=== PATIENT | male | born 1990 | race Caucasian/White ===

== ENCOUNTER 2020-02-18 23:48 | Emergency (ER) | payer OTHER ==
[2020-02-19] MEDS ORDERED: MORPHINE SULFATE 10 MG/ML INJ IV ONE ×3 (00:31→05:12)
[2020-02-19] MEDS ORDERED: ONDANSETRON HCL INJ/PF 4 MG/2 ML SDV IV ONE ×2 (00:31→05:12)
--- NOTE | 2020-02-19 00:40 | ER Document Report ---
ED Animal Bite - General Chief Complaint: Snake Bite Stated Complaint: SNAKE BITE TO LEFT THIGH Time Seen by Provider: 02/19/20 00:22 Notes: Patient is a 29-year-old male that comes to the emergency department for chief complaint of snakebite. He states he was carrying a pile of of sticks in his backyard when a snake suddenly bit him on the thigh, he states he thinks the snake was in the pile he was carrying. He states he did see the snake and it was light brown with whitish stripes on it. He states it was about 2 and half feet long. He started getting pain and a little bit of bruising at the area over the left thigh where he was bitten, he denies any other symptoms including nausea, sweating, shortness of breath, or pain anywhere else. He is vaccinated within 5 years for his tetanus, he denies any daily medications or diagnosed medical history. He did admit to drinking several beers tonight, denies recreational drugs. - Related Data Allergies/Adverse Reactions: No Known Allergies Allergy (Verified 02/19/20 00:45) Home Medications: Doxycycline Past Medical History - General Information source: Patient - Social History Smoking Status: Current Every Day Smoker Chew tobacco use (# tins/day): No Frequency of alcohol use: Social Drug Abuse: None Lives with: Family Family History: Reviewed & Not Pertinent Patient has suicidal ideation: No Patient has homicidal ideation: No - Medical History Medical History: Negative Past Surgical History: Reports: Hx Orthopedic Surgery - Immunizations Immunizations up to date: Yes Hx Diphtheria, Pertussis, Tetanus Vaccination: Yes Review of Systems - Review of Systems Constitutional: No symptoms reported EENT: No symptoms reported Cardiovascular: No symptoms reported Respiratory: No symptoms reported Gastrointestinal: No symptoms reported Genitourinary: No symptoms reported Male Genitourinary: No symptoms reported Musculoskeletal: See HPI Skin: See HPI Hematologic/Lymphatic: No symptoms reported Neurological/Psychological: No symptoms reported Physical Exam - Vital signs Vitals: Temp Pulse Resp BP Pulse Ox 97.5 F 72 18 148/97 H 98 02/18/20 23:52 02/18/20 23:52 02/18/20 23:52 02/18/20 23:52 02/18/20 23:52 - Notes Notes: GENERAL: Alert, interacts well. No acute distress. Appropriate, does not appear to be intoxicated. HEAD: Normocephalic, atraumatic. EYES: Pupils equal, round, and reactive to light. Extraocular movements intact. ENT: Oral mucosa moist, tongue midline. Oropharynx unremarkable. Airway patent. Nares patent, sinuses non-tender NECK: Full range of motion. Supple. Trachea midline. No lymphadenopathy. LUNGS: Clear to auscultation bilaterally, no wheezes, rales, or rhonchi. No respiratory distress. Non-tender chest wall. HEART: Regular rate and rhythm. No murmur ABDOMEN: Soft, non-tender. Non-distended. EXTREMITIES: Left anterior distal lateral thigh with a 2 cm area consistent with small puncture wounds and surrounding ecchymosis. There is no noted erythema at this time, there is some slight soft tissue swelling surrounding this which is firm but not hard and not significantly tender. There is no extension up tow ards the thigh or down towards the knee. Normal range of motion at the hip, knee, normal distal neurovascular exam. BACK: no cervical, thoracic, lumbar midline tenderness. No saddle anesthesia, normal distal neurovascular exam. Moves all extremities in full range of motion. NEUROLOGICAL: Alert and oriented x3. Normal speech. Cranial nerves II through XII grossly intact. Strength 5/5 in all extremities. PSYCH: Normal affect, normal mood. SKIN: Warm, dry, normal turgor. No rashes or lesions noted. Course - Re-evaluation Re-evalutation: 02/19/20 00:35. Called and spoke with poison control. Recommendation is to observe patient for 8 hours. Measure thigh hourly, measure and oh any redness hourly, if there is significant swelling at 6 hours obtain CBC, PT/INR, fibrinogen at that time, if significant swelling and considering crofab call poison control back. 02/19/20 01:40 There is slightly increased bruising and swelling with slightly additional warmth but there is no significant or severe change from 1 hour ago. Continuing to monitor. Initial thigh measurement was 58, not it is 61 cm. 02/19/20 03:03 Evaluation patient is barely changed from prior, but 1 cm change on measurement, scouring machine tender to the area, no significant streaking away from the area, continue to monitor. Patient is much more comfortable after second pain medication dose. 02/19/20 04:19 Thigh measurement has stopped increasing in size (at 64 cm), there is no worsening change at this point, hopefully after this point patient has reached the maximal swelling and will simply improve from this time. 02/19/20 05:13 Swelling has decreased at this point (60 cm). Last measurement was 2 cm smaller over the left thigh. If patient continues to improve like this patient will be discharged at 8 AM per monitoring period recommendations. 02/19/20 05:21 Poison control called back, asked for all the details, these were provided. They state at this point the case will be considered closed, patient will be monitored till 8 AM, after this he can be discharged, they can be called back if any concerning symptoms or findings develop. 02/19/20 07:30 Patient has almost reached the monitoring period, symptoms have only improved at this point. Discussed details, recommendations, providing with dispense pack of pain medications, discussed follow-up and return precautions. Patient states appreciation and agreement, calling for a ride. - Vital Signs Vital signs: Temp Pulse Resp BP Pulse Ox 97.5 F 72 36 H 112/64 94 02/18/20 23:52 02/18/20 23:52 02/19/20 05:01 02/19/20 07:01 02/19/20 07:01 Discharge - Discharge Clinical Impression: Snake bite Qualifiers: Encounter type: initial encounter Qualified Code(s): W59.11XA - Bitten by nonvenomous snake, initial encounter Condition: Stable Disposition: HOME, SELF-CARE Additional Instructions: You have been treated tonight for a snakebite. There was envenomation, however you appear to have reached maximum swelling and swelling should continue to resolve. I recommend that you keep area clean, keep topical antibiotic dressing over the bite area, elevate your leg as the swelling continues to resolve, you can take Tylenol and ibuprofen for pain, if needed you can take the stronger pain medication provided today. Resume activity as tolerated. Return if you worsen including severe worsening swelling or pain, developing or spreading redness, fever, or any other concerning symptoms. Forms: Return to Work
[2020-02-19] MEDS ORDERED: HYDROCODONE/ACETAMINOPHEN 5-325 MG (6 TAB/ER DISP) PO PRN (07:28)
[2020-02-19 08:12] VITALS: BP 114/66
== END 2020-02-19 08:12 | disposition home or self-care (01) ==
LOC: ER 23:48
DX: S71.152A Open bite, left thigh, initial encounter (principal); W59.11XA Bitten by nonvenomous snake, initial encounter; Y92.007 Garden or yard of unspecified non-institutional (private) residence as the place of occurrence of the external cause; F17.200 Nicotine dependence, unspecified, uncomplicated
CPT/HCPCS: 96376; 99283; 96374; 96375; J2270; J2405